=== PATIENT | female | born 1985 | race Two or more races ===

== ENCOUNTER 2025-05-24 19:23 | Emergency (ER) | payer OTHER, SELFPAY ==
[2025-05-24 19:25] VITALS: BMI 36.2
[2025-05-24 20:11] VITALS: BP 129/83; PULSE 65; RESP 19; TEMP 37.1; O2SAT 98
--- NOTE | 2025-05-24 21:02 | XR_ITS ---
Examination: Duplex scan of the upper extremity, unilateral right complete Date and time of exam: May 24, 2025, 2042 hours INDICATIONS: Right arm swelling and pain beginning 2 days ago Technique: Duplex scan of the extremity veins using B-mode/grayscale imaging and Doppler spectral analysis and color flow Attention is directed to internal echogenicity, compression and augmentation involving these veins, color flow assessment, spectral analysis Findings: Major deep venous structures in the extremity demonstrate normal course and caliber. There is no evidence of deep vein thrombosis. Normal color flow and spectral analysis Impression: Negative for DVT..
[2025-05-24 22:40] VITALS: BP 126/88; PULSE 55; RESP 17; TEMP 37.1; O2SAT 98
[2025-05-24] MEDS: KETOROLAC INJ 60 MG/2 ML VIAL 30 MG IM (23:07)
[2025-05-24] MEDS: DEXAMETHASONE SOD PHOS INJ 10 MG/ML VIAL IM (23:08)
== END 2025-05-24 23:13 | disposition home or self-care (01) ==
PROVIDERS: Emergency Provider Emergency Medicine
DX: Z53.21 Procedure and treatment not carried out due to patient leaving prior to being seen by health care provider (principal)
CPT/HCPCS: 93971; 96372; 99283; J1100; J1885